=== PATIENT | female | born 1975 | race Caucasian/White ===

== ENCOUNTER 2016-12-16 11:15 | Inpatient (IN) | payer BC ==
[~2016-12-16] VITALS: Ht 149.9 cm; Wt 85.8 kg
[2016-12-16 12:38] LABS: BASOPHIL % 0.3 % (0-2)
[2016-12-16 12:40] LABS: PLATELET COUNT 434 x10^3mcL (130-400); RED CELL DISTRIBUTION WIDTH 14.6 % (11.5-14.5)
[2016-12-16 12:46] LABS: CALCIUM 8.9 mg/dL (8.5-10.1); CARBON DIOXIDE 31.5 mmol/L (21-32); CHLORIDE SERUM 106 mmol/L (98-107); CREATININE SERUM 0.6 mg/dL (0.6-1.0); GFR1 > 60 mL/min; GLUCOSE SERUM 90 mg/dL (74-106); POTASSIUM SERUM 3.8 mmol/L (3.5-5.1); SODIUM SERUM 141 mmol/L (136-145)
[2016-12-16 12:51] LABS: ALBUMIN 3.5 g/dL (3.4-5.0); ALKALINE PHOSPHATASE 113 U/L (46-116); ALT/SGPT 82 U/L (14-59); AST/SGOT 58 U/L (15-37); BILIRUBIN TOTAL 0.44 mg/dL (0.20-1.00); TOTAL PROTEIN, SERUM 7.5 g/dL (6.4-8.2)
[2016-12-16 16:48] LABS: microscopic required? NO
[2016-12-16 17:11] LABS: urine erythrocyte NEGATIVE (NEGATIVE)
[2016-12-16 17:34] LABS: AMPHETAMINE QUAL UR NONE DETECTED (NEG <=1000)
[2016-12-16 17:36] LABS: CHOLESTEROL/HDL RATIO 1.9
[2016-12-16 17:37] VITALS: BP 104/60
[2016-12-16 17:41] LABS: FREE T4 0.95 ng/dL (0.76-1.46); FREE THYROXINE INDEX 1.7 ug/dL (1.4-4.5); T3 TOTAL 1.01 ng/mL; T4(THYROXINE) 5.4 ug/dL (4.7-13.3)
[2016-12-16 20:16] VITALS: BP 105/55
[2016-12-17 06:05] VITALS: BP 100/55
[2016-12-17 06:19] LABS: TOTAL IRON BINDING CAPACITY 418 ug/dL (250-450)
[2016-12-17 06:24] LABS: CALCIUM 8.6 mg/dL (8.5-10.1); CARBON DIOXIDE 28.7 mmol/L (21-32); CHLORIDE SERUM 106 mmol/L (98-107); CREATININE SERUM 0.6 mg/dL (0.6-1.0); GFR1 > 60 mL/min; GLUCOSE SERUM 102 mg/dL (74-106); MAGNESIUM 1.9 mg/dL (1.8-2.4); PHOSPHOROUS 4.7 mg/dL (2.5-4.9); POTASSIUM SERUM 4.3 mmol/L (3.5-5.1); SODIUM SERUM 143 mmol/L (136-145)
[2016-12-17 06:29] LABS: IRON 33 ug/dL (50-170)
[2016-12-17 07:10] LABS: BASOPHIL % 0.3 % (0-2); PLATELET COUNT 371 x10^3mcL (130-400); RED BLOOD CELLS 3.43 M/mm3 (4.10-5.10); RED CELL DISTRIBUTION WIDTH 14.5 % (11.5-14.5)
[2016-12-17 09:28] VITALS: BP 105/63
[2016-12-17 13:17] VITALS: BP 112/61
[2016-12-17 16:39] VITALS: BP 109/61
[2016-12-17 21:16] VITALS: BP 107/64
[2016-12-18 06:12] VITALS: BP 103/56
[2016-12-18 06:24] LABS: BASOPHIL % 0.3 % (0-2); PLATELET COUNT 344 x10^3mcL (130-400); RED CELL DISTRIBUTION WIDTH 14.3 % (11.5-14.5)
[2016-12-18 06:42] LABS: CALCIUM 8.6 mg/dL (8.5-10.1); CARBON DIOXIDE 29.1 mmol/L (21-32); CHLORIDE SERUM 108 mmol/L (98-107); CREATININE SERUM 0.7 mg/dL (0.6-1.0); GFR1 > 60 mL/min; GLUCOSE SERUM 94 mg/dL (74-106); POTASSIUM SERUM 4.3 mmol/L (3.5-5.1); SODIUM SERUM 143 mmol/L (136-145)
[2016-12-18 09:11] LABS: TRANSFERRIN 339 mg/dL (200-370)
[2016-12-18 09:41] VITALS: BP 110/67
[2016-12-18 15:23] VITALS: BP 110/56
[2016-12-18 17:50] VITALS: BP 100/58
[2016-12-18 21:29] VITALS: BP 97/55
[2016-12-19 05:32] VITALS: BP 108/55
[2016-12-19 06:03] LABS: BASOPHIL % 0.2 % (0-2); PLATELET COUNT 365 x10^3mcL (130-400); RED CELL DISTRIBUTION WIDTH 14.5 % (11.5-14.5)
[2016-12-19 06:22] LABS: CALCIUM 8.6 mg/dL (8.5-10.1); CHLORIDE SERUM 107 mmol/L (98-107); CREATININE SERUM 0.6 mg/dL (0.6-1.0); GFR1 > 60 mL/min; GLUCOSE SERUM 107 mg/dL (74-106); POTASSIUM SERUM 4.1 mmol/L (3.5-5.1); SODIUM SERUM 140 mmol/L (136-145)
[2016-12-19 08:00] VITALS: BP 106/62
[2016-12-19 17:22] VITALS: BP 102/58
[2016-12-19 21:08] VITALS: BP 102/57
[2016-12-20 06:15] VITALS: BP 103/65
[2016-12-20 06:40] LABS: BASOPHIL % 0.4 % (0-2); PLATELET COUNT 317 x10^3mcL (130-400)
[2016-12-20 06:57] LABS: CALCIUM 8.2 mg/dL (8.5-10.1); CARBON DIOXIDE 28.9 mmol/L (21-32); CHLORIDE SERUM 108 mmol/L (98-107); CREATININE SERUM 0.7 mg/dL (0.6-1.0); GFR1 > 60 mL/min; GLUCOSE SERUM 98 mg/dL (74-106); POTASSIUM SERUM 3.8 mmol/L (3.5-5.1); RED CELL DISTRIBUTION WIDTH 14.6 % (11.5-14.5); SODIUM SERUM 143 mmol/L (136-145)
[2016-12-20 09:15] VITALS: BP 102/47
[2016-12-20 10:12] VITALS: Ht 149.9 cm; Wt 85.8 kg
[2016-12-20] MEDS ORDERED: COL250 PO (11:26)
[2016-12-20] MEDS ORDERED: FERG PO (11:38)
[2016-12-20] MEDS ORDERED: VITAMIN C PURE500 M1 PO (11:39)
[2016-12-20] MEDS ORDERED: APAP/HYDROCODON1 T13 PO (11:51)
== END 2016-12-20 13:44 | disposition home or self-care (01) | DRG 742 ==
LOC: ED 11:15 → DU 15:55 → MU 15:55 → DU 17:19 → MU 12-17 22:59
PROVIDERS: Emergency Medicine; Family Medicine; Obstetrics & Gynecology; ADMIT Family Medicine
PROC: 0UB13ZZ Excision of Left Ovary, Percutaneous Approach (ICD-10-PCS; 2016-12-18)
PROC: 0WJJ0ZZ Inspection of Pelvic Cavity, Open Approach (ICD-10-PCS; 2016-12-18)
PROC: 0UDB7ZZ Extraction of Endometrium, Via Natural or Artificial Opening (ICD-10-PCS; principal; 2016-12-18 12:00)
DX: N83.202 Unspecified ovarian cyst, left side (principal); N39.0 Urinary tract infection, site not specified; N92.1 Excessive and frequent menstruation with irregular cycle; N73.9 Female pelvic inflammatory disease, unspecified; D64.9 Anemia, unspecified; R74.0 Nonspecific elevation of levels of transaminase and lactic acid dehydrogenase [LDH]; E66.9 Obesity, unspecified; E87.8 Other disorders of electrolyte and fluid balance, not elsewhere classified; D47.3 Essential (hemorrhagic) thrombocythemia; Z68.38 Body mass index [BMI] 38.0-38.9, adult; Z88.6 Allergy status to analgesic agent; Z87.440 Personal history of urinary (tract) infections
CPT/HCPCS: 80307; 83880; 84439; J0330; J0696; J1170; J1200; J2250; J2270; J2405; J2704; J2710; J3010; J3490; J7030

== ENCOUNTER 2019-06-11 07:53 | Emergency (ER) | payer BC ==
[~2019-06-11] VITALS: Ht 149.9 cm; Wt 83.5 kg
[~2019-06-11 07:53] MED LIST: APAP/HYDROCODON1 T13 PO; COL250 PO; FERG PO; VITAMIN C PURE500 M1 PO
[2019-06-11 08:06] VITALS: Ht 149.9 cm; Wt 83.5 kg
[2019-06-11 11:10] VITALS: BP 130/70
== END 2019-06-11 11:10 | disposition home or self-care (01) ==
LOC: ED 07:53
DX: S39.012A Strain of muscle, fascia and tendon of lower back, initial encounter (principal); Z88.6 Allergy status to analgesic agent; Z98.890 Other specified postprocedural states; X58.XXXA Exposure to other specified factors, initial encounter; Y93.89 Activity, other specified; Y92.89 Other specified places as the place of occurrence of the external cause; Y99.8 Other external cause status
CPT/HCPCS: J3010